=== PATIENT | male | born 1955 | race Caucasian/White ===

== ENCOUNTER → 2023-02-20 14:42 | Outpatient (CLI) | payer MEDICARE, BC, SELFPAY | PROVIDERS: Visit Provider Physician Assistant | DX: N50.9 Disorder of male genital organs, unspecified (principal) | CPT/HCPCS: 87077; 87086 ==

== ENCOUNTER → 2023-04-18 13:09 | Outpatient (CLI) | payer OTHER, SELFPAY | PROVIDERS: PCP Family Medicine; Visit Provider Specialist | DX: S37.30XA Unspecified injury of urethra, initial encounter (principal); N39.0 Urinary tract infection, site not specified; N40.1 Benign prostatic hyperplasia with lower urinary tract symptoms; N13.8 Other obstructive and reflux uropathy; R33.9 Retention of urine, unspecified; N31.2 Flaccid neuropathic bladder, not elsewhere classified; Z87.448 Personal history of other diseases of urinary system; Z87.440 Personal history of urinary (tract) infections | CPT/HCPCS: 51798; 81002; 87077; 87086; 87186; 99215 ==

== ENCOUNTER → 2023-07-16 08:49 | Outpatient (CLI) | payer MEDICARE, SELFPAY ==
[2023-07-16 09:58] LABS: Add Manual Diff / Slide Review NO; Basophils Absolute Auto 0 /uL (0-100); Basophils Percent Auto 0.7 % (0-2); Eosinophils Absolute Auto 100 /uL (0-450); Eosinophils Percent Auto 1.5 % (2-4); Lymphocytes Absolute Auto 900 /uL (1100-4500); Mean Corpuscular HGB Conc 35.1 % (30-36); Mean Corpuscular Hemoglobin 33.9 PG (26-34); Mean Corpuscular Volume 96.8 fL (80-100); Monocytes Absolute Auto 500 /uL (0-900); Neutrophils Absolute Auto 2700 /uL (1500-7000); Neutrophils Percent Auto 64.8 % (50-75); Platelet Count 251 X10^3/uL (150-400); Red Blood Cell Count 4.13 X10^6/uL (4.5-5.9); Red Cell Distribution Width 13.7 % (11.6-14.8); White Blood Cell Count 4.2 X10^3/uL (4.5-11.0)
[2023-07-16 10:07] LABS: Hemoglobin A1C% w Est Avg Glu 5.2 % (4.0-6.0)
[2023-07-16 10:27] LABS: Alanine Aminotransferase 24 IU/L (<50); Albumin 4.3 g/dL (3.5-5.0); Albumin Globulin Ratio 1.7 (1.0-2.8); Alkaline Phosphatase 68 U/L (38-126); Aspartate Aminotransferase 30 IU/L (17-59); BUN Creatinine Ratio 21.2 (6-22); Bilirubin Total 0.8 mg/dL (0.2-1.3); Blood Urea Nitrogen 14 mg/dL (9-20); Calcium 9.3 mg/dL (8.4-10.2); Carbon Dioxide 26 mmol/L (22-32); Chloride 106 mmol/L (98-107); Cholesterol 135 mg/dL (140-199); Estimated Glomerular Filt Rate > 60 mL/min (>60); Globulin 2.6 g/dL (1.7-4.1); Glucose 106 mg/dL (80-110); HDL Cholesterol 53 mg/dL (40-60); HEMOLYSIS < 15 (0-50); LDL Cholesterol Calculated 68 mg/dL (<100); Potassium 4.8 mmol/L (3.4-5.1); Sodium 136 mmol/L (137-145); Total Protein 6.9 g/dL (6.3-8.2); Triglycerides 72 mg/dL (35-150)
[2023-07-16 10:45] LABS: Prostate Specific Antigen 1.67 ng/mL (0.10-4.00)
== END ==
PROVIDERS: PCP Family Medicine; Referring Provider Specialist; Visit Provider Specialist
DX: N40.1 Benign prostatic hyperplasia with lower urinary tract symptoms (principal); N13.8 Other obstructive and reflux uropathy; I10 Essential (primary) hypertension; E78.5 Hyperlipidemia, unspecified
CPT/HCPCS: 36415; 80053; 80061; 83036; 84153; 85025

== ENCOUNTER → 2023-07-19 14:52 | Outpatient (CLI) | payer OTHER, SELFPAY ==
--- NOTE | 2023-07-19 | DI.US.S_ITS ---
PROCEDURE: US RENAL COMPLETE INDICATIONS: FU URETHRAL INJURY TECHNIQUE: Real-time scanning was performed of the kidneys and bladder, with image documentation. COMPARISON: None. FINDINGS: Kidneys: Kidneys are normal in size. Right kidney measures 12.5 cm long; left kidney measures 8.6 cm long. Right renal cortical thickness is 1.5 cm; left renal cortical thickness is 1.5 cm. Renal cortical echotexture is normal. No hydronephrosis or nephrolithiasis. No suspicious solid mass lesions. Simple renal cysts measure up to 4 cm on the left and 1.6 cm on the right Bladder: Pre-void bladder volume is 132 mL. Post-void residual is 0 mL. Pre-void images demonstrate no intraluminal masses or stones. On pre-void images, bilateral ureteral jets are noted with color Doppler interrogation. (Of note, ureteral jets may not be detectable in up to 25% of cases due to insufficient differences in specific gravity between ureteral and bladder urine). Miscellaneous: No free pelvic fluid. IMPRESSION: Bilateral simple renal cysts without hydronephrosis. Bilateral ureteral jets noted in the bladder Approved by: Virgil Mclean M.D. on 07/19/2023 at 18:38
== END ==
PROVIDERS: PCP Family Medicine; Referring Provider Specialist; Visit Provider Specialist
DX: N40.1 Benign prostatic hyperplasia with lower urinary tract symptoms (principal); N13.8 Other obstructive and reflux uropathy; N28.1 Cyst of kidney, acquired; N31.2 Flaccid neuropathic bladder, not elsewhere classified; R33.9 Retention of urine, unspecified; S37.30XD Unspecified injury of urethra, subsequent encounter
CPT/HCPCS: 76770

== ENCOUNTER → 2023-07-24 08:05 | Outpatient (CLI) | payer MEDICARE, SELFPAY | PROVIDERS: PCP Family Medicine; Visit Provider Specialist | DX: Z87.440 Personal history of urinary (tract) infections (principal) | CPT/HCPCS: 87077; 87086 ==

== ENCOUNTER → 2023-08-14 14:10 | Outpatient (CLI) | payer MEDICARE, SELFPAY ==
[2023-08-14 16:39] LABS: Ferritin 505 ng/mL (18-464)
[2023-08-14 17:10] LABS: Folate > 20.0 ng/mL (2.76-20.0); Vitamin B12 939 pg/mL (239-931)
== END ==
PROVIDERS: PCP Family Medicine; Referring Provider Family Medicine; Visit Provider Family Medicine
DX: E53.8 Deficiency of other specified B group vitamins (principal); D64.9 Anemia, unspecified
CPT/HCPCS: 36415; 82607; 82728; 82746

== ENCOUNTER → 2024-07-16 11:26 | Outpatient (CLI) | payer MEDICARE, SELFPAY ==
[2024-07-16 13:55] LABS: Appearance Urine UA SL CLOUDY; Bilirubin Urine UA NEGATIVE (NEGATIVE); Color Urine UA YELLOW; Glucose Urine UA NEGATIVE (Negative); Ketones Urine UA NEGATIVE (NEGATIVE); Leukocyte Esterase Urine UA 1+ (NEGATIVE); Nitrite Urine UA POSITIVE (Negative); Occult Blood Urine UA NEGATIVE (Negative); Protein Urine UA NEGATIVE (Negative); Specific Gravity Urine UA 1.015 (1.000-1.035); Urobilinogen Urine UA 0.2 E.U./dL (0.2)
[2024-07-16 13:59] LABS: Prostate Specific Antigen 1.94 ng/mL (0.10-4.00)
[2024-07-16 14:00] LABS: RBC Urine None Seen (0-5/HPF); Urine Volume 10mL (spun)
[2024-07-16 14:01] LABS: Amorphous Sediment Urine 1+; Bacteria Urine None Seen; Culture Indicated Urine Specimen Cultured; Squamous Epithelial Cell Urine None Seen (0-5/HPF); WBC Urine 10-30/HPF (0-5/HPF)
== END ==
PROVIDERS: PCP Family Medicine; Referring Provider Urology; Visit Provider Urology
DX: N40.1 Benign prostatic hyperplasia with lower urinary tract symptoms (principal); Z87.440 Personal history of urinary (tract) infections; N13.8 Other obstructive and reflux uropathy; N31.2 Flaccid neuropathic bladder, not elsewhere classified; R33.9 Retention of urine, unspecified
CPT/HCPCS: 36415; 81001; 84153; 87077; 87086; 87186

== ENCOUNTER → 2024-08-14 09:38 | Outpatient (CLI) | payer MEDICARE, SELFPAY ==
[2024-08-14 10:03] LABS: Add Manual Diff / Slide Review NO; Basophils Absolute Auto 0 /uL (0-100); Basophils Percent Auto 0.9 % (0-2); Eosinophils Absolute Auto 200 /uL (0-450); Eosinophils Percent Auto 3.8 % (2-4); Hemoglobin 14.7 g/dL (13.5-17.5); Lymphocytes Absolute Auto 1000 /uL (1100-4500); Lymphocytes Percent Auto 25.4 % (25-40); Mean Corpuscular HGB Conc 35.9 % (30-36); Mean Corpuscular Volume 97.5 fL (80-100); Monocytes Absolute Auto 500 /uL (0-900); Monocytes Percent Auto 11.7 % (3-14); Neutrophils Absolute Auto 2400 /uL (1500-7000); Neutrophils Percent Auto 58.2 % (50-75); Platelet Count 272 X10^3/uL (150-400); Red Blood Cell Count 4.21 X10^6/uL (4.5-5.9); White Blood Cell Count 4.1 X10^3/uL (4.5-11.0)
[2024-08-14 10:47] LABS: Alanine Aminotransferase 37 IU/L (<50); Albumin 4.3 g/dL (3.5-5.0); Albumin Globulin Ratio 1.7 (1.0-2.8); Alkaline Phosphatase 68 U/L (38-126); Aspartate Aminotransferase 36 IU/L (17-59); BUN Creatinine Ratio 22.4 (6-22); Bilirubin Total 0.9 mg/dL (0.2-1.3); Blood Urea Nitrogen 17 mg/dL (9-20); Calcium 9.2 mg/dL (8.4-10.2); Carbon Dioxide 25 mmol/L (22-32); Chloride 103 mmol/L (98-107); Cholesterol 133 mg/dL (140-199); Estimated Glomerular Filt Rate > 60 mL/min (>60); Globulin 2.5 g/dL (1.7-4.1); Glucose 98 mg/dL (70-99); HDL Cholesterol 56 mg/dL (40-60); HEMOLYSIS < 15 (0-50); LDL Cholesterol Calculated 66 mg/dL (<100); Potassium 4.5 mmol/L (3.4-5.1); Sodium 134 mmol/L (137-145); Total Protein 6.8 g/dL (6.3-8.2); Triglycerides 55 mg/dL (35-150)
[2024-08-14 15:13] LABS: HIV 1 & 2 Ab/Ag 4th Gen Combo NEGATIVE (NEGATIVE); Hep C Virus Ab w/Reflex Quant NEGATIVE s/c (NEGATIVE)
== END ==
LOC: LAB 09:39
PROVIDERS: PCP Family Medicine; Referring Provider Family Medicine; Visit Provider Family Medicine
DX: Z11.4 Encounter for screening for human immunodeficiency virus [HIV] (principal); Z11.59 Encounter for screening for other viral diseases; I10 Essential (primary) hypertension; D72.818 Other decreased white blood cell count; N40.1 Benign prostatic hyperplasia with lower urinary tract symptoms; N13.8 Other obstructive and reflux uropathy; E78.2 Mixed hyperlipidemia; D72.819 Decreased white blood cell count, unspecified; Z79.899 Other long term (current) drug therapy; Z91.89 Other specified personal risk factors, not elsewhere classified
CPT/HCPCS: 36415; 80053; 80061; 85025; 86803; 87389

== ENCOUNTER 2025-01-23 07:38 | Day surgery (SDC) | payer MEDICARE, SELFPAY ==
[2025-01-20 10:59] VITALS: BMI 26.0
[2025-01-23 07:55] VITALS: BP 145/83; PULSE 72; RESP 16; TEMP 36.2; O2SAT 99
[2025-01-23] MEDS: LACTATED RINGERS 1,000 ML 42 ML IV (08:10)
--- NOTE | 2025-01-23 08:14 | P.HP_ITS ---
History of Present Illness History of Present Illness Date Patient Seen: 01/23/25 Time Patient Seen: 08:14 Chief complaint: Screening Colonoscopy Narrative: Dani is a 69-year-old man here for a colonoscopy. He believes his last one was about 5 years ago. He believes he has never had polyps removed before. No family history of colon cancer. [facility] Medical History (Updated 01/23/25 @ 08:15 by Villa Salguero MD) Intermittent self-catheterization of bladder Urethral straddle injury Colon polyps History of UTI History of bladder stone History of urethral stricture BPH w urinary obs/LUTS Flaccid bladder Urinary retention Depression (~2014) Anxiety (~2014) Shoulder pain (~2019) Mumps (~1962) Chicken pox (~1963) Vertigo (~1964) Hearing loss (~1959) GERD (gastroesophageal reflux disease) (~2014) Urethral injury HTN (hypertension) (~2004) HLD (hyperlipidemia) Surgical History (Updated 08/25/24 @ 08:06 by Joya Wilkinson MA) History of hernia repair (03/02/23) Anesthesia Hx of inguinal hernia surgery (~02/2022) Family History Father History of heart disease Mother Alcohol dependence Family/Other Suicide Social History (Updated 08/25/24 @ 07:44 by Lynn Robles) marital status: details: Moved from [place]. number of children: 1 (now due to suicide) lives independently: Yes caregiver/support person: No housing: apartment pets and animals: No education level: college occupational status: employed current occupational exposures/hazards: No fabrizio/anabaptism: [employer] special fabrizio needs: No travel history: recent leisure activities: exercise, music and reading seatbelt use: always helmet use: Yes water heater temp set < 120 deg: Yes working smoke detector in home: Yes fire extinguisher in home: No carbon monox detector in home: No firearms in home: Yes firearms unloaded and locked: Yes do you feel safe at home: Yes Smoking Status: Never smoker second hand exposure: No alcohol intake: current during the past year weight has: remained stable well-balanced diet: daily or most days daily servings fruits/ve-4 caffeine: Yes eating out: 1-3 times/week Type(s) of exercise: walking, bicycling, regular exercise, resistance training and normal ROM and activity frequency: 3-4 times per week duration: 45-60 minutes/day Meds Home Medications and Allergies Home Medications ?Medication ?Instructions ?Recorded ?Confirmed ?Type multivitamin 1 tab PO DAILY 03/06/2301/04 History ascorbate calcium (vitamin C) 500 500 mg PO DAILY 04/0501/23/25 History mg tablet metoprolol succinate 100 mg 100 mg PO DAILY 07/18/24 1 03/25/24 History tablet,extended release 24 hr atorvastatin 20 mg tablet 20 mg PO BEDTIME #90 tabs 01/23/25 Rx Allergies Allergy/AdvReac Type Severity Reaction Status Date / Time Sulfa (Sulfonamide Allergy Mild Nausea Verified 08/25/24 08:22 Antibiotics) Exam Vital Signs (past 8 hours): - 01/23/25 07:55 Temperature 97.1 F L Pulse Rate 72 Respiratory Rate 16 Blood Pressure 145/83 H Pulse Oximetry 99 Oxygen Delivery Method Room Air Oxygen Delivery Method Room Air Const General: healthy appearing Assessment & Plan Assessment and plan (1) Colon cancer screening: Status: Acute Plan Colonoscopy for colon cancer screening. If no adenomatous polyps today he can stop colon cancer screening. Time-Based Coding :: [TOTAL MINUTES] spent with patient and on the chart (including review of chart, obtaining history, exam, reviewing outside data, placing orders, documenting ex am and treatment plan, and counseling patient) on [DATE]. 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
[2025-01-23 09:14] VITALS: BP 119/72; PULSE 85; RESP 16; TEMP 36.7; O2SAT 96
[2025-01-23 09:15] VITALS: BP 134/76; PULSE 87; RESP 23; O2SAT 95
--- NOTE | 2025-01-23 09:15 | P.OP.COLON_ITS ---
Operative Date/Time/Diagnoses Date of procedure: 01/23/25 Time of procedure: 09:15 Pre-op diagnosis: Colon cancer screening Post-op diagnosis: same Procedure & Clinicians Study performed: Colonoscopy Same procedure(s) as scheduled: Yes Surgeon: Villa Salguero Anesthesia Type: MAC +/- Procedure Notes Procedure in detail: Surgeon: Villa Salguero MD Anesthesia: Zorina Drew [employer]PER[employer]CH[employer]IC Procedure: The patient was brought to the endoscopy suite, placed in left lateral decubitus position. The patient was connected to monitoring devices. A time-out was performed. Sedation was administered. Once the patient was adequately sedated, a digital rectal exam was performed and was normal. The scope was then inserted and advanced to the cecum where the appendiceal orifice was identified and photographed. The scope was then slowly withdrawn over greater than 6 minutes. The mucosa was thoroughly inspected. No polyps were found. There was moderate sigmoid diverticulosis. The scope was retroflexed in the rectum. There were internal hemorrhoids noted. The scope was straightened and removed. The patient was awakened and brought to recovery. Scope withdrawal time: 7 minutes Sedation time: 11 minutes Findings: Moderate sigmoid colon diverticulosis and internal hemorrhoids Estimated Blood Loss: 0 Complications: none Post-procedure Disposition: PACU
[2025-01-23 09:20] VITALS: BP 135/78; PULSE 93; RESP 22; O2SAT 99
[2025-01-23 09:25] VITALS: BP 127/79; PULSE 81; RESP 26; TEMP 36.7; O2SAT 95
[2025-01-23 09:27] VITALS: BP 130/84; PULSE 77; RESP 26; O2SAT 96
== END 2025-01-23 09:40 | disposition home or self-care (01) ==
PROVIDERS: PCP Family Medicine; Referring Provider Family Medicine; Visit Provider Surgery
PROC: 0DJD8ZZ Inspection of Lower Intestinal Tract, Via Natural or Artificial Opening Endoscopic (ICD-10-PCS; CPT 45378; principal; 2025-01-23 08:45)
DX: Z12.11 Encounter for screening for malignant neoplasm of colon (principal); K57.30 Diverticulosis of large intestine without perforation or abscess without bleeding; K64.8 Other hemorrhoids; I10 Essential (primary) hypertension; E78.5 Hyperlipidemia, unspecified
CPT/HCPCS: G0121; J2704; J7120